=== PATIENT | female | born 1990 | race Two or more races ===

== ENCOUNTER 2024-07-30 03:08 | Emergency (ER) | payer BC ==
[~2024-07-30] VITALS: Ht 167.6 cm; Wt 100.0 kg
[~2024-07-30 03:08] MED LIST: POTA-36 PO
--- NOTE | 2024-07-30 04:10 | DVH ---
INDICATION: fall COMPARISON: None TECHNIQUE: 2 views of the lumbar spine were obtained. FINDINGS: The lumbar vertebral alignment is normal. The intervertebral disc spaces are well-maintained. No significant facet arthropathy is noted. No acute fracture, vertebral compression deformity or aggressive osseous lesions. The paravertebral soft tissues are grossly unremarkable. IMPRESSION: No acute fracture.
--- NOTE | 2024-07-30 04:13 | ED.PDOC ---
Back pain HPI HPI Comments This is a 34-year-old female patient presents to the ED chief complaint low back pain. Patient states started 2 days ago after falling while she was dancing on the dance floor she states she was dancing and called girl boots and lost her footing. States she fell back on her back. She rates pain 7/10 on pain scale sharp shooting pain bilateral across the waist. Has been taking [id number] ibuprofen she states has not been helping has also been using ice and heat with little relief. She denies numbness, weakness, loss of bowel bladder control, or saddle anesthesia. Denies any other known injuries denies LOC or neck pain. Chief Complaint: Back Pain Time Seen by MD: 03:18 Primary Care Provider: IVANA Meeks Notes: Nurses Notes, Medications, Allergies Allergies: Coded Allergies: NO KNOWN ALLERGIES (Unverified , 12/11/23) Home Meds Active Scripts Tizanidine Hydrochloride (Zanaflex) 4 Mg Cap, 1 CAP PO QPM PRN for 5 Days, #5 CAP Prov:TRINI HERNANDEZ [facility] 07/30/24 Methylprednisolone (Medrol Dosepak) 4 Mg Calvin, 4 MG PO UD for 6 Days, #21 TAB UAD Prov:TRINI HERNANDEZ [facility] 07/30/24 Potassium Chloride (POTASSIUM CHLORIDE CR) 10 Meq Tb, 1 TAB PO DAILY for 7 Days, #7 TAB 5 Refills Prov:GARETH DEAL MD 12/11/23 Information Source: Patient Mode of Arrival: Ambulatory Past Medical History PAST MEDICAL HISTORY: Anxiety, HTN, Thyroid Surgical History: Thyroidectomy [employer] History: Denies all [employer] Hx Family History Family History: Reviewed,noncontributory to illness Social History Smoker: Non-Smoker Alcohol: Denies ETOH Use Drugs: Denies Drug Use Lives In: Home Constitutional: denies: chills, diaphoresis, fatigue, fever, malaise, sweats, weakness, others EENTM: denies: blurred vision, double vision, ear bleeding, ear discharge, ear drainage, ear pain, ear ringing, eye pain, eye redness, hearing loss, mouth pain, mouth swelling, nasal discharge, nose bleeding, nose congestion, nose pain, photophobia, tearing, throat pain, throat swelling, voice changes, others Respiratory: denies: cough, hemoptysis, orthopnea, SOB at rest, shortness of breath, SOB with excertion, stridor, wheezing, others Cardiovascular: denies: chest pain, dizzy spells, diaphoresis, Dyspnea on exertion, edema, irregular heart beat, left arm pain, lightheadedness, palpitations, PND, syncope, others Gastrointestinal: denies: abdomen distended, abdominal pain, blood streaked bowels, constipated, diarrhea, dysphagia, difficulty swallowing, hematemesis, melena, nausea, poor appetite, poor fluid intake, rectal bleeding, rectal pain, vomiting, others Genitourinary: denies: abnormal vagina bleeding, burning, dyspareunia, dysuria, flank pain, frequency, hematuria, incontinence, pain, , vagina discharge, urgency, others Neurological: denies: dizziness, fainting, headache, left sided numbness, left sided weakness, numbness, paresthesia, pre-existing deficit, right sided numbness, right sided weakness, seizure, speech problems, tingling, tremors, weakness, others Musculoskeletal: reports: back pain; denies: gout, joint pain, joint swelling, muscle pain, muscle stiffness, neck pain, others Integumetry: denies: bruises, change in color, change in hair/nails, dryness, laceration, lesions, lumps, rash, wounds, others Allergic/Immunocompromised: denies: Difficulty Healing, Frequent Infections, Hives, Itching, others Hematologic/Lymphatic: denies: anemia, blood clots, easy bleeding, easy bruising, swollen glands, others Endocrine: denies: excessive hunger, excessive sweating, excessive thirst, excessive urination, flushing, intolerance to cold, intolerance to heat, unexplained weight gain, unexplained weight loss, others Psychiatric: denies: anxiety, bipolar disorder, depression, hopeless, panic disorder, schizophrenia, sleepless, suicidal, others Physical Exam General Appearance: No Apparent Distress, Normal HEENT: Pharynx Normal Neck: Full Range of Motion, Non-Tender Respiratory: Lungs Clear, No Respiratory Distress, Normal Breath Sounds Cardiovascular: No Murmur, Normal Peripheral Pulses, Regular Rate/Rhythm Breast Exam: Deferred Gastrointestinal: Non Tender, Soft Genitalia: Deferred Pelvic: Deferred Rectal: Deferred Extremities: Normal capillary refill, Normal inspection, Normal range of motion, Non-tender, No pedal edema Musculoskeletal : Location: Bilateral Extremity Location: Back (Bilateral lower back musculature tender on palpation with noted spasms. No tenderness palpated along L1 through L5 spine without crepitus or step-offs. No noted lesions, abrasions, ecchymosis or lacerations. Negative straight leg raise bilateral. Strength sensory motion intact positive pedal pulses.) Apperance: Normal Neurologic: Alert, occupational ther II-XII nml as Tested, No Motor Deficits, Normal Affect, Normal Mood, No Sensory Deficits Cerebellar Function: Normal Reflexes: Normal Skin: Dry, Normal Color, Warm Lymphatic: No Adenopathy Was a procedure done? Was a procedure done?: No Back Pain Differential Dx Differential Diagnosis: Fracture, Musculoskeletal Pain X-Ray, Labs, Meds, VS Vital Signs Date Time Temp Pulse Resp B/P (MAP) Pulse Ox O2 Delivery O2 Flow Rate FiO2 07/30/24 04:17 97.4 84 16 168/101 (123) 97 97.4 07/30/24 04:17 84 16 97 Room Air 07/30/24 03:24 97.4 84 16 168/101 (123) 97 Current Medications Medications (Trade) Dose Ordered Sig/Lisette Route Start Time Stop Time Status Last Admin Ketorolac Tromethamine (Toradol Injection) 60 mg ONCE ONCE IM 07/30/24 04:15 07/30/24 04:16 DC 07/30/24 04:30 Acetaminophen/ Hydrocodone Bitart (Aurora 5/325MG Tab) 1 tab ONCE ONCE PO 07/30/24 04:15 07/30/24 04:16 DC 07/30/24 04:31 X-Ray, Labs, Meds, VS Comment Lumbar spine x-ray shows no acute fractures or osseous lesions. Likely muscular in nature. Patient given Toradol 60 mg IM and Aurora 5 mg p.o. she reports improvement in pain and function requesting discharge at this time. We will script tizanidine muscle relaxer and Medrol Dosepak. Advised to rest, continue with ice and heat whatever feels better. Advised to follow up with PCP in 2-3 days consider referral for physical therapy or career services assistant. Advised to return to the ER for increasing pain, numbness, weakness, loss of bowel or bladder control, or saddle anesthesia. Patient agrees with discharge plan of care. Time of 1ST Reevaluation: 04:39 Reevaluation 1ST: Improved Patient Education/Counseling: Diagnosis, Treatment, Prognosis, Need For Follow Up Family Education/Counseling: Diagnosis, Treatment, Prognosis, Need For Follow Up Departure 1 Departure Time of Disposition: 04:39 Impression: Primary Impression: Lumbar back sprain Qualified Codes: S33.5XXA - Sprain of ligaments of lumbar spine, initial encounter Additional Impression: Musculoskeletal pain Disposition: HOME / SELF CARE / HOMELESS Condition: Stable e-Prescriptions Tizanidine Hydrochloride (Zanaflex) 4 Mg Cap 1 CAP PO QPM PRN for 5 Days, #5 CAP Prov: TRINI HERNANDEZ 07/30/24 Methylprednisolone (Medrol Dosepak) 4 Mg Calvin 4 MG PO UD for 6 Days, #21 TAB UAD Prov: TRINI HERNANDEZ 07/30/24 Discharged With: Spouse Critical Care Note Critical Care Time?: No Stability Stability form required: TRINI Padgett Jul 30, 2024 04:13
[2024-07-30] MEDS ORDERED: TIZA4CAP PO (04:15)
[2024-07-30] MEDS ORDERED: METH4PAK PO (04:15)
[2024-07-30 04:17] VITALS: BP 168/101; PULSE 84; RESP 16; TEMP 97.4; O2SAT 97
[2024-07-30] MEDS: KETOROLAC TROMETH 60MG/2ML VIAL IM ONE (04:30)
[2024-07-30] MEDS: HYDROcodone-ACET 5/325MG TAB PO ONE (04:31)
== END 2024-07-30 05:26 | disposition home or self-care (01) ==
LOC: ER 03:08
DX: S33.5XXA Sprain of ligaments of lumbar spine, initial encounter (principal); M79.18 Myalgia, other site; I10 Essential (primary) hypertension; Z79.899 Other long term (current) drug therapy; Z90.89 Acquired absence of other organs; W18.09XA Striking against other object with subsequent fall, initial encounter; Y93.41 Activity, dancing; Y92.89 Other specified places as the place of occurrence of the external cause; Y99.8 Other external cause status
CPT/HCPCS: 72100; 96372; 99283; J1885